=== PATIENT | male | born 1985 | race Caucasian/White ===

== ENCOUNTER 2022-05-09 08:24 | Emergency (ER) | payer OTHER ==
[~2022-05-09] VITALS: Ht 170.1 cm; Wt 104.3 kg
[2022-05-09] MEDS ORDERED: LANTUS SOL100 UNIT/1 SC (08:47)
[2022-05-09] MEDS ORDERED: INSULIN LI100 UNIT/2 SQ (08:47)
== END 2022-05-09 11:33 | disposition home or self-care (01) ==
LOC: ED 08:24 → EDBD 08:25 → ED 11:33
DX: S30.0XXA Contusion of lower back and pelvis, initial encounter (principal); Z88.0 Allergy status to penicillin; Z88.6 Allergy status to analgesic agent; Z79.899 Other long term (current) drug therapy; W10.8XXA Fall (on) (from) other stairs and steps, initial encounter; Y93.89 Activity, other specified; Y92.89 Other specified places as the place of occurrence of the external cause; Y99.8 Other external cause status

== ENCOUNTER 2023-04-10 17:13 | Emergency (ER) | payer OTHER ==
[~2023-04-10] VITALS: Ht 170.1 cm; Wt 102.1 kg
[~2023-04-10 17:13] MED LIST: INSULIN LI100 UNIT/2 SQ; LANTUS SOL100 UNIT/1 SC
[2023-04-10] MEDS ORDERED: TOUJEO SOL300 UNIT/1 SQ (17:41)
[2023-04-10] MEDS ORDERED: ZANAFLEX4 MG PO (19:12)
== END 2023-04-10 19:40 | disposition home or self-care (01) ==
LOC: ED 17:13
DX: S39.012A Strain of muscle, fascia and tendon of lower back, initial encounter (principal); Z88.0 Allergy status to penicillin; Z88.6 Allergy status to analgesic agent; W11.XXXA Fall on and from ladder, initial encounter; Y93.E9 Activity, other interior property and clothing maintenance; Y92.89 Other specified places as the place of occurrence of the external cause; Y99.8 Other external cause status